=== PATIENT | female | born 1945 | race Caucasian/White ===

== ENCOUNTER 2017-01-27 16:05 | Observation (INO) | payer MEDICARE, OTHER ==
[2017-01-27] VITALS (7 sets, daily range): BP systolic 118–181; BP diastolic 71–104; PULSE 78–88; RESP 16–20; TEMP 97.6–97.8; O2SAT 87–98
[~2017-01-27] VITALS: Ht 167.6 cm; Wt 102.7 kg
[2017-01-27] MEDS ORDERED: METO25TA3 PO (16:30)
[2017-01-27] MEDS ORDERED: PRAV10TA PO (16:30)
[2017-01-27] MEDS ORDERED: AMBI5TAB PO (16:30)
[2017-01-27] MEDS ORDERED: ZOLO50TA PO (16:30)
[2017-01-27] MEDS ORDERED: PANT20 PO (16:30)
[2017-01-27] MEDS ORDERED: SODIUM CHLORIDE 0.9% FLUSH 10 ML FLUSH IV FLUSH PRN ×2 (17:15→20:15)
[2017-01-27] MEDS ORDERED: ONDANSETRON HCL 4 MG/2 ML VIAL IVP ONE (17:15)
[2017-01-27] MEDS ORDERED: MORPHINE SULFATE 4 MG/ML INJ IV PUSH ONE (17:15)
[2017-01-27 17:22] LABS: AUTOMATED NEUTROPHIL # 8.7 TH/MM3 (1.8-7.7); BASOPHIL % 0.4 % (0.0-2.0); EOSINOPHIL # 0.1 TH/MM3 (0-0.4); EOSINOPHIL % 0.6 % (0.0-4.0); HEMATOCRIT 42.7 % (35.0-46.0); HEMO FLAGS DIFF FINAL; LYMPH % 14.7 % (9.0-44.0); LYMPHOCYTE # 1.7 TH/MM3 (1.0-4.8); MONO % 7.4 % (0.0-8.0); NEUT % 76.9 % (16.0-70.0); PLATELET COUNT 320 TH/MM3 (150-450); RED BLOOD COUNT 5.21 MIL/MM3 (4.00-5.30); RED CELL DISTRIBUTION WIDTH 14.4 % (11.6-17.2); WHITE BLOOD COUNT 11.3 TH/MM3 (4.0-11.0)
--- NOTE | 2017-01-27 17:23 | PD ---
HPI Chief Complaint: Abdominal Pain Time Seen by Provider: 17:04 Travel History International Travel<30 days: No Contact w/Intl Traveler<30days: No Traveled to known affect area: No History of Present Illness HPI 71-year-old female patient with history of C. difficile diarrhea, complicated by intestinal perforation, fistula formation, and has a current colostomy, was seen in [place] last month and had been put on antibiotics, presents back to the ER today for left lower quadrant abdominal pain and back pain with nausea. She states the pain is currently an 8 out of 10. She has noticed hyperactive bowel sounds and has been putting out copious amount of greenish stool in her colostomy bag. She has also noted small amount of red blood in her stools today. She denies any fevers or any other symptoms. Modifying Factors: None Associated Signs & Symptoms: Abdominal pain, nausea, greenish stool in colostomy bag Risk Factors: Previous history of C. difficile diarrhea, recent antibiotic use PFSH Past Medical History Depression: Yes Heart Rhythm Problems: Yes Cancer: Yes (left breast) Cardiovascular Problems: Yes (hx of htn on meds) High Cholesterol: Yes Diminished Hearing: No Gastrointestinal Disorders: Yes (right colostomy bag) GERD: Yes Hypertension: Yes Respiratory: Yes (copd) Influenza Vaccination: Yes ?: Not Past Surgical History Abdominal Surgery: Yes (several , colostomy and reversal) Cardiac Surgery: Yes (ablation twice) Section: Yes Other Surgery: Yes (left lumpectomy) Social History Alcohol Use: No Tobacco Use: No Allergies-Medications (Allergen,Severity, Reaction): Coded Allergies: No Known Allergies (Unverified , 01/27/17) Reported Meds & Prescriptions Reported Meds & Active Scripts Active Reported Ambien (Zolpidem Tartrate) 5 Mg Tab 0 PO HS PRN Pravastatin 10 Mg Tab 0 PO HS NEB Protonix (Pantoprazole Sodium) 20 Mg Tab 0 PO DAILY Zoloft (Sertraline HCl) 50 Mg Tab 0 PO DAILY Metoprolol Tartrate 25 Mg Tab 0 PO DAILY Review of Systems Except as stated in HPI: all other systems reviewed are Neg Physical Exam Narrative GENERAL: Well-developed elderly white female patient currently in mild distress. Awake and oriented 3. SKIN: Focused skin assessment warm/dry. HEAD: Atraumatic. Normocephalic. EYES: Pupils equal and round. No scleral icterus. No injection or drainage. ENT: No nasal bleeding or discharge. Mucous membranes pink and moist. NECK: Trachea midline. No JVD. CARDIOVASCULAR: Regular rate and rhythm. No murmur appreciated. RESPIRATORY: No accessory muscle use. Clear to auscultation. Breath sounds equal bilaterally. GASTROINTESTINAL: Abdomen soft, periumbilical and left lower quadrant tenderness without guarding or rebound, left lower quadrant colostomy is in place with greenish stool, nondistended. Hepatic and splenic margins not palpable. MUSCULOSKELETAL: No obvious deformities. No clubbing. No cyanosis. No edema. NEUROLOGICAL: Awake and alert. No obvious cranial nerve deficits. Motor grossly within normal limits. Normal speech. PSYCHIATRIC: Appropriate mood and affect; insight and judgment normal. Data Data Last Documented VS Vital Signs Date Time Temp Pulse Resp B/P Pulse Ox O2 Delivery O2 Flow Rate FiO2 01/27/17 18:19 88 18 118/71 96 Room Air 01/27/17 16:10 97.6 Orders Complete Blood Count With Diff (01/27/17 17:04) Comprehensive Metabolic Panel (01/27/17 17:04) Lipase (01/27/17 17:04) Urinalysis - C+S If Indicated (01/27/17 17:04) Ct Abd/Pel W Iv Contrast(Rout) (01/27/17 17:04) Iv Access Insert/Monitor (01/27/17 17:04) Ecg Monitoring (01/27/17 17:04) Oximetry (01/27/17 17:04) Morphine Inj (Morphine Inj) (01/27/17 17:15) Ondansetron Inj (Zofran Inj) (01/27/17 17:15) Sodium Chloride 0.9% Flush (Ns Flush) (01/27/17 17:15) C Diff Toxin Pcr (01/27/17 17:04) Iohexol 350 Inj (Omnipaque 350 Inj) (01/27/17 18:08) Admit Order (Ed Use Only) (01/27/17 19:07) Metronidazole (Flagyl) (01/27/17 19:15) Labs Laboratory Tests Test 01/27/17 01/27/17 16:35 16:45 Urine Color YELLOW Urine Turbidity CLERA Urine pH 5.5 Urine Specific [place] 1.015 Urine Protein TRACE mg/dL Urine Glucose (UA) NEG mg/dL Urine Ketones NEG mg/dL Urine Occult Blood TRACE Urine Nitrite NEG Urine Bilirubin NEG Urine Leukocyte Esterase SMALL Urine RBC 0-3 /hpf Urine WBC 6-8 /hpf Urine Squamous Epithelial 0-5 /hpf Cells Urine Bacteria RARE /hpf Microscopic Urinalysis Comment CULT NOT INDICATED White Blood Count 11.3 TH/MM3 Red Blood Count 5.21 MIL/MM3 Hemoglobin 14.1 GM/DL Hematocrit 42.7 % Mean Corpuscular Volume 82.0 FL Mean Corpuscular Hemoglobin 27.0 PG Mean Corpuscular Hemoglobin 33.0 % Concent Red Cell Distribution Width 14.4 % Platelet Count 320 TH/MM3 Mean Platelet Volume 9.1 FL Neutrophils (%) (Auto) 76.9 % Lymphocytes (%) (Auto) 14.7 % Monocytes (%) (Auto) 7.4 % Eosinophils (%) (Auto) 0.6 % Basophils (%) (Auto) 0.4 % Neutrophils # (Auto) 8.7 TH/MM3 Lymphocytes # (Auto) 1.7 TH/MM3 Monocytes # (Auto) 0.8 TH/MM3 Eosinophils # (Auto) 0.1 TH/MM3 Basophils # (Auto) 0.0 TH/MM3 CBC Comment DIFF FINAL Differential Comment Sodium Level 140 MEQ/L Potassium Level 4.6 MEQ/L Chloride Level 104 MEQ/L Carbon Dioxide Level 25.9 MEQ/L Anion Gap 10 MEQ/L Blood Urea Nitrogen 17 MG/DL Creatinine 1.10 MG/DL Estimat Glomerular Filtration 49 ML/MIN Rate Random Glucose 110 MG/DL Calcium Level 9.9 MG/DL Total Bilirubin 0.7 MG/DL Aspartate Amino Transf 26 U/L (AST/SGOT) Alanine Aminotransferase 23 U/L (ALT/SGPT) Alkaline Phosphatase 105 U/L Total Protein 8.5 GM/DL Albumin 3.5 GM/DL Lipase 312 U/L [facility] Medical Decision Making Medical Screen Exam Complete: Yes Emergency Medical Condition: Yes Medical Record Reviewed: Yes Interpretation(s) Laboratory Tests Test 01/27/17 01/27/17 16:35 16:45 Urine Occult Blood TRACE (NEG) Urine Leukocyte Esterase SMALL (NEG) Urine WBC 6-8 /hpf (0-5) Urine Bacteria RARE /hpf (NONE) White Blood Count 11.3 TH/MM3 (4.0-11.0) Neutrophils (%) (Auto) 76.9 % (16.0-70.0) Neutrophils # (Auto) 8.7 TH/MM3 (1.8-7.7) Creatinine 1.10 MG/DL (0.50-1.00) Estimat Glomerular Filtration 49 ML/MIN (>89) Rate Random Glucose 110 MG/DL (74-106) Total Protein 8.5 GM/DL (6.4-8.2) Last 24 hours Impressions Abdomen/Pelvis CT 01/27/17 1704 Signed Impressions: Service Date/Time: Friday, January 27, 2017 17:51 - CONCLUSION: Evidence of small bowel obstruction with adhesed, distended small bowel loops in and around the large left lower quadrant peristomal hernia. Trey Wang MD Differential Diagnosis Left lower quadrant abdominal pain with nausea, greenish stoolsC. difficile diarrhea versus colitis versus acute intra-abdominal processes Narrative Course Lab work did not show significant leukocytosis or signs of dehydration or legs light abnormalities. She is tender over the left lower quadrant and CAT scan is showing hernia in that area with small bowel obstruction. At this point, case was discussed with Dr. Frazier who states that he does not feel that patient needs emergent surgical treatment especially with no significant vomiting or signs that the hernia is incarcerated on exam. He states that the patient can be evaluated medically and treated medically at this point. C. difficile toxin is pending. Considering patient's previous history of C. difficile diarrhea, my plan would be to give her Flagyl as precaution. Case is discussed with Dr. Chilel for admission. He has requested that I consult General surgery on the patient. Diagnosis Primary Impression: Small bowel obstruction Admitting Information Admitting Physician Requests: Admit Violetta Duran MD Jan 27, 2017 17:23
[2017-01-27 17:24] LABS: BLOOD, URINE TRACE (NEG); GLUCOSE,URINE NEG (NEG); KETONE, URINE NEG (NEG); NITRITE,URINE NEG (NEG); PH, URINE 5.5 (5.0-8.5)
[2017-01-27 17:29] LABS: URINE COLOR YELLOW (YELLW/STRAW)
[2017-01-27 17:30] LABS: RBC, URINE 0-3 /hpf (0-3); SQUAMOUS EPITHELIAL CELL URINE 0-5 /hpf (0-5)
[2017-01-27 17:30] LABS: CHLORIDE 104 MEQ/L (98-107); POTASSIUM 4.6 MEQ/L (3.5-5.1); SODIUM (NA) 140 MEQ/L (136-145)
[2017-01-27 17:31] LABS: BACTERIA, URINE RARE /hpf; COMMENT (UR) CULT NOT INDICATED; CULTURE IF INDICATED CULT NOT INDICATED
[2017-01-27 17:35] LABS: ANION GAP 10 MEQ/L (5-15); BICARBONATE 25.9 MEQ/L (21.0-32.0)
[2017-01-27 17:36] LABS: BLOOD UREA NITROGEN 17 MG/DL (7-18)
[2017-01-27 17:38] LABS: ALT (GPT) 23 U/L (10-53); AST (GOT) 26 U/L (15-37); GLOMERULAR FILTRATION RATE 49 ML/MIN (>89)
[2017-01-27 17:40] LABS: TOTAL BILIRUBIN ADULT 0.7 MG/DL (0.2-1.0)
[2017-01-27 17:41] LABS: ALKALINE PHOSPHATASE 105 U/L (45-117)
[2017-01-27] MEDS ORDERED: IOHEXOL 350 MG/ML 10 ML VIAL (for RAD DIAG) IV ONE (18:08)
--- NOTE | 2017-01-27 18:20 | RADHPO ---
EXAM DATE/TIME: 01/27/2017 17:51 [facility] COMPARISON: No previous studies available for comparison. INDICATIONS : Left lower quadrant pain radiaitng to back. IV CONTRAST: 70 cc Omnipaque 350 (iohexol) IV ORAL CONTRAST: No oral contrast ingested. RADIATION DOSE: 24.10 CTDIvol (mGy) MEDICAL HISTORY : Hypertension. Carcinoma, breast. Gastroesophageal reflux disease. SURGICAL HISTORY : Colostomy. section. ENCOUNTER: Initial ACUITY: 4 - 6 days PAIN SCALE: 4/10 LOCATION: Left lower quadrant TECHNIQUE: Volumetric scanning of the abdomen and pelvis was performed. Using automated exposure control and ad justment of the mA and/or kV according to patient size, radiation dose was kept as low as reasonably achievable to obtain optimal diagnostic quality images. FINDINGS: Previous colectomy. There is a left lower quadrant ostomy. There is a large peristomal hernia. Norbert us loops of distended and tethered appearing small bowel are seen within the hernia and the adjacent abdominal cavity. The hernia defect measures 11.5 cm across. There are loops of bowel distal to the h ernia that appeared decompressed and the segment of bowel just upstream of the ostomy is not distende d. The features are compatible with obstruction but appears to be related to adhesions rather than th e hernia itself. Liver, spleen, pancreas and adrenal glands are within normal limits. Both kidneys are small. No evide nce of obstructive uropathy. There's atherosclerotic calcification of the abdominal aorta. No acute bony abnormality demonstrated. There are old, healed lower left rib fractures. CONCLUSION: Evidence of small bowel obstruction with adhesed, distended small bowel loops in and around the large left lower quadrant peristomal hernia. Trey Wang MD on January 27, 2017 at 18:12 Board Certified Radiologist. This report was verified electronically.
[2017-01-27] MEDS ORDERED: metroNIDAZOLE 500 MG TAB PO ONE (19:15)
[2017-01-27] MEDS ORDERED: ACETAMINOPHEN 325 MG TAB PO PRN (20:15)
[2017-01-27] MEDS ORDERED: NALOXONE HCL 0.4 MG/ML AMP IV PRN (20:15)
[2017-01-27] MEDS ORDERED: HYDROmorphone HCL PF 1 MG/ML VIAL IV PRN ×2 (20:15)
[2017-01-27] MEDS ORDERED: PANTOPRAZOLE SODIUM 40 MG VIAL IV PUSH SCH (21:00)
[2017-01-27] MEDS: metroNIDAZOLE 500 MG TAB PO SCH (22:00)
[2017-01-27] MEDS: SODIUM CHLOR 0.9% 1000 ML INJ 1,000 ML IV SCH (22:01)
[2017-01-27] MEDS: SODIUM CHLORIDE 0.9% FLUSH 10 ML FLUSH IV FLUSH SCH (22:01)
[2017-01-27 22:42] LABS: C. DIFF EPI 027 PRESUMPTIVE NEGATIVE (NEGATIVE); C. DIFF TOXIN PCR NEGATIVE (NEGATIVE)
[2017-01-27] MEDS: ONDANSETRON HCL 4 MG/2 ML VIAL IVP PRN (22:42)
[2017-01-27] MEDS: HYDROmorphone HCL PF 1 MG/ML VIAL IV PRN (22:43)
[2017-01-28] VITALS: BP 107/66; PULSE 89; RESP 20; TEMP 97.4; O2SAT 97
[2017-01-28] MEDS: metroNIDAZOLE 500 MG TAB PO SCH (05:14)
[2017-01-28] MEDS: SODIUM CHLOR 0.9% 1000 ML INJ 1,000 ML IV SCH ×2 (05:15→17:10)
[2017-01-28] MEDS: ONDANSETRON HCL 4 MG/2 ML VIAL IVP PRN ×2 (05:18→11:50)
[2017-01-28] MEDS: HYDROmorphone HCL PF 1 MG/ML VIAL IV PRN ×2 (05:20→11:51)
[2017-01-28 06:57] LABS: BASOPHIL % 0.3 % (0.0-2.0); EOSINOPHIL % 0.4 % (0.0-4.0); HEMATOCRIT 36.9 % (35.0-46.0); HEMO FLAGS DIFF FINAL; LYMPH % 15.7 % (9.0-44.0); LYMPHOCYTE # 1.1 TH/MM3 (1.0-4.8); MEAN CELL VOLUME 82.2 FL (80.0-100.0); MEAN CORPUSCULAR HEMOGLOBIN 27.3 PG (27.0-34.0); MEAN CORPUSCULAR HGB CONC 33.3 % (32.0-36.0); MONO % 11.6 % (0.0-8.0); PLATELET COUNT 253 TH/MM3 (150-450); RED BLOOD COUNT 4.49 MIL/MM3 (4.00-5.30); RED CELL DISTRIBUTION WIDTH 14.3 % (11.6-17.2); WHITE BLOOD COUNT 6.9 TH/MM3 (4.0-11.0)
[2017-01-28 07:14] LABS: BICARBONATE 27.3 MEQ/L (21.0-32.0)
[2017-01-28 08:00] VITALS: BP 119/77; PULSE 96; RESP 18; TEMP 97.6; O2SAT 92
--- NOTE | 2017-01-28 09:10 | HHI.HP ---
[facility] Non-Staff Admission Diagnosis small bowel obstruction Diagnoses: (1) Small bowel obstruction Diagnosis: Principal (2) History of colostomy Diagnosis: Principal (3) JASMYN (acute kidney injury) Diagnosis: Principal Chief Complaint: abdominal pain, nausea, vomiting Travel History International Travel<30 Days: No Contact w/Intl Traveler <30 Da: No Traveled to Known Affected Are: No History of Present Illness 71-year-old female with history of small bowel obstruction and C. difficile one month ago with pre-existing left-sided colostomy s/p bowel perforation and fistula formation a few years ago presents with complaint of increased abdominal pain and nausea, and vomiting. Patient states she had abdominal pain which started on Friday night but she took Tylenol which relieved it. She states yesterday morning symptoms started again and she had some mild vomiting. She admits to feeling nauseous. Denies any further emesis. She denies any increased stool output into her colostomy bag but states it is green. Patient states she has increased gas into her colostomy bag. She denies any abdominal distention. She's admits to feeling hot but denies any chills. Patient states one month ago in [place] she was told she had a "small blockage" and was diagnosed with C. difficile and put on medication. Patient states she hadn't had any problems in 1.5 years until last month. Patient states she has been up and walking around. Patient does not wish to continue Flagyl. Review of Systems Except as stated in HPI: all other systems reviewed are Neg Past Family Social History Past Medical History ~1 month ago C.diff and bowel obstruction 2013 C. difficile infection following cardiac ablation. Depression Left breast cancer, radiation Hyperlipidemia Hypertension COPD Past Surgical History 2013 Patient had bowel perforation and required right sided colostomy following C.diff infection. She then underwent attempted reversal but developed a fistula and now has colostomy on the left with left sided hernia. Cardiac ablation Left lumpectomy Reported Medications Ambien (Zolpidem Tartrate) 5 Mg Tab 0 PO HS PRN Pravastatin 10 Mg Tab 0 PO HS NEB Protonix (Pantoprazole Sodium) 20 Mg Tab 0 PO DAILY Zoloft (Sertraline HCl) 50 Mg Tab 0 PO DAILY Metoprolol Tartrate 25 Mg Tab 0 PO DAILY Allergies: Coded Allergies: No Known Allergies (Unverified , 01/27/17) Family History Mother: Breast cancer at old age. Father: Prostate cancer Social History Patient quit smoking cigarettes 9 years ago. Prior to this she smoked 2.5 packs per day. Started smoking at age of 17. Patient quit using alcohol 2 years ago and prior to this was a heavy drinker. She denies any history of illicit drug use. Physical Exam Vital Signs Vital Signs Date Time Temp Pulse Resp B/P Pulse Ox O2 Delivery O2 Flow Rate FiO2 01/28/17 08:00 97.6 96 18 119/77 92 01/28/17 00:00 97.4 89 20 107/66 97 01/27/17 22:48 98 Nasal Cannula 2.00 01/27/17 22:45 87 21 01/27/17 20:30 97.8 78 20 128/86 94 01/27/17 20:26 84 20 142/80 97 01/27/17 20:07 20 01/27/17 18:19 88 18 118/71 96 Room Air 01/27/17 17:32 18 01/27/17 17:20 85 18 134/81 96 Room Air 01/27/17 16:10 97.6 88 16 181/104 95 Physical Exam GENERAL: This is a well-nourished, well-developed patient, in no apparent distress. SKIN: No rashes, ecchymoses or lesions. Warm and dry. Surgical scar over the abdomen. HEAD: Atraumatic. Normocephalic. EYES: No scleral icterus. No injection or drainage. ENT: Dry mucous membranes. NECK: Trachea midline. CARDIOVASCULAR: Distant heart sounds. RESPIRATORY: Clear to auscultation. Breath sounds equal bilaterally. No wheezes , rales, or rhonchi. GASTROINTESTINAL: Normal bowel sounds. Abdomen distended but soft. Mildly tender on the left in area of hernia. Colostomy bag on the left with greenish- brown soft output. MUSCULOSKELETAL: No lower extremity edema bilaterally. NEUROLOGICAL: Awake and alert. Motor grossly within normal limits. Normal speech. Laboratory Laboratory Tests Test 01/27/17 01/27/17 01/27/17 01/28/17 16:35 16:45 17:10 05:45 Urine Color YELLOW Urine Turbidity CLERA Urine pH 5.5 Urine Specific [place] 1.015 Urine Protein TRACE Urine Glucose (UA) NEG Urine Ketones NEG Urine Occult Blood TRACE Urine Nitrite NEG Urine Bilirubin NEG Urine Leukocyte Esterase SMALL Urine RBC 0-3 Urine WBC 6-8 Urine Squamous Epithelial 0-5 Cells Urine Bacteria RARE Microscopic Urinalysis Comment CULT NOT INDICATED White Blood Count 11.3 6.9 Red Blood Count 5.21 4.49 Hemoglobin 14.1 12.3 Hematocrit 42.7 36.9 Mean Corpuscular Volume 82.0 82.2 Mean Corpuscular Hemoglobin 27.0 27.3 Mean Corpuscular Hemoglobin 33.0 33.3 Concent Red Cell Distribution Width 14.4 14.3 Platelet Count 320 253 Mean Platelet Volume 9.1 8.6 Neutrophils (%) (Auto) 76.9 72.0 Lymphocytes (%) (Auto) 14.7 15.7 Monocytes (%) (Auto) 7.4 11.6 Eosinophils (%) (Auto) 0.6 0.4 Basophils (%) (Auto) 0.4 0.3 Neutrophils # (Auto) 8.7 5.0 Lymphocytes # (Auto) 1.7 1.1 Monocytes # (Auto) 0.8 0.8 Eosinophils # (Auto) 0.1 0.0 Basophils # (Auto) 0.0 0.0 CBC Comment DIFF FINAL DIFF FINAL Differential Comment Sodium Level 140 144 Potassium Level 4.6 4.0 Chloride Level 104 105 Carbon Dioxide Level 25.9 27.3 Anion Gap 10 12 Blood Urea Nitrogen 17 16 Creatinine 1.10 1.10 Estimat Glomerular Filtration 49 49 Rate Random Glucose 110 126 Calcium Level 9.9 8.8 Total Bilirubin 0.7 Aspartate Amino Transf 26 (AST/SGOT) Alanine Aminotransferase 23 (ALT/SGPT) Alkaline Phosphatase 105 Total Protein 8.5 Albumin 3.5 Lipase 312 Stool C. difficile Toxin (PCR) NEGATIVE Stl C. difficile Toxin PRESUMPTIVE Epiderm 027 NEGATIVE Result Diagram: 01/28/17 0545 01/28/17 0545 Imaging Last Impressions Abdomen/Pelvis CT 01/27/17 5757 Signed Impressions: Service Date/Time: Friday, January 27, 2017 17:51 - CONCLUSION: Evidence of small bowel obstruction with adhesed, distended small bowel loops in and around the large left lower quadrant peristomal hernia. Trey Wang MD Assessment and Plan Assessment and Plan 71-year-old female presents with abdominal pain, nausea, and vomiting and found to have: Small bowel obstruction: Patient with current left-sided colostomy. Per patient she had a bowel obstruction one month ago in [place] and also had C. difficile at that time. CT imaging reveals small bowel obstruction and adhesions around the left-sided hernia, but patient appears stable. Patient denies increased colostomy output. C. difficile testing is negative. Mild leukocytosis improved. Patient afebrile. -General surgery evaluated the patient this morning. No surgical intervention indicated. Repeat KUB ordered for today as well as tomorrow morning. -Continue IV fluids. Remain nothing by mouth at this time. -Continue Zofran prn nausea -Dilaudid prn pain -Continue Lactinex -Patient refuses Flagyl JASMYN: Creatinine 1.10, stable this morning. GFR 49. Could have chronic kidney disease, but no prior labs for comparison. -Continue IVF. -Monitor BMP. DVT prevention: SCDs. Written by Megan Vieira PA-C acting as scribe for Dr. Chilel on 01/28/17 at 0900. This note was transcribed by scribe []. I, Dr. Grant Chilel personally performed the history, physical exam, and medical decision making; and confirmed the accuracy of the information in the transcribed note. Authenticated by Dr. Grant Chilel on 01/28/17 at 21:30. Megan Vieira Jan 28, 2017 09:10 Grant Chilel MD Jan 28, 2017 21:30
[2017-01-28] MEDS: SODIUM CHLORIDE 0.9% FLUSH 10 ML FLUSH IV FLUSH SCH ×2 (10:13→21:00)
[2017-01-28] MEDS: LACTOBACILLUS ACIDOPHILUS TAB PO SCH ×3 (10:13→17:49)
--- NOTE | 2017-01-28 10:29 | RADHPO ---
EXAM DATE/TIME: 01/28/2017 09:31 [facility] COMPARISON: CT ABDOMEN & PELVIS W CONTRAST, January 27, 2017, 17:51. INDICATIONS : Small Bowel Obstruction MEDICAL HISTORY : Hypertension. Carcinoma, breast. Gastroesophageal reflux disease. SURGICAL HISTORY : Colostomy. ENCOUNTER: Subsequent ACUITY: 4 - 6 days PAIN SCORE: 4/10 LOCATION: Bilateral lower quadrant FINDINGS: There are multiple loops of mildly dilated small intestine within the left lower quadrant consistent with possible small bowel obstruction. Clinical correlation is recommended. Degenerative changes an d scoliosis of the thoracolumbar spine are noted. There is no free intraperitoneal air. CONCLUSION: 1. Several loops of mildly dilated small intestine within the left lower quadrant suggestive of poss ible small obstruction. Clinical correlation is recommended. 2. Degenerative changes and scoliosis of the thoracolumbar spine. Lamin Dunn MD on January 28, 2017 at 10:22 Board Certified Radiologist. This report was verified electronically.
[2017-01-28 12:00] VITALS: BP 150/93; PULSE 98; RESP 18; TEMP 97; O2SAT 93
[2017-01-28] MEDS ORDERED: PANT40TA3 PO (15:10)
[2017-01-28 16:00] VITALS: BP 133/78; PULSE 96; RESP 18; TEMP 98; O2SAT 93
[2017-01-28] MEDS ORDERED: PRAV10TA PO (16:07)
[2017-01-28] MEDS ORDERED: AMBI5TAB PO (16:07)
[2017-01-28] MEDS: PANTOPRAZOLE SOD 40 MG DELAYED RELEASE TAB PO SCH (17:49)
--- NOTE | 2017-01-28 18:15 | MB ---
cc: SANTI SANCHEZ M.D. DATE OF CONSULTATION 01/28/2017 REASON FOR CONSULTATION Possible bowel obstruction. HISTORY OF PRESENT ILLNESS Ms. Corbin is a very pleasant 71-year-old female who is vacationing in the area and developed some nausea and abdominal pain. She has a very complex surgical history including multiple exploratory laparotomies, multiple ostomies and fistulas and all of this was apparently for C diff colitis and diverticulitis. She states she had a similar episode about a month ago when she was vacationing in [place]. She states she was admitted for 3 days in [place] with an NG tube and this episode spontaneously resolve. The episode that brought her here today started about three days ago according to her. She had some nausea and some mild cramping abdominal pain mainly in the left lower quadrant. She did report two episodes of a small amount of emesis. She states the nausea and the cramping was what bother her the most. She reports she did not get distended like she did when she was in [place]. She reports her ostomy is still working, in fact she reports that the output had increased with this episode. She reports a similar episode a month ago in [place]. She reports no fever or chills. She reports gas and stool within the ostomy throughout this episode. Again she denies any abdominal distension. PAST MEDICAL HISTORY Includes: 1. Clostridium difficile colitis. 2. Cardiac arrhythmia requiring ablation. 3. Previous DCIS left breast. 4. Hypertension. 5. Chronic obstructive pulmonary disease. PAST SURGICAL HISTORY Includes: 1. Exploratory laparotomy and colostomy in 2013 for C diff colitis. And then she subsequently had a colostomy takedown which apparently leaked. She has also abdominal fistulas and was taken back to the operating room for a second colostomy. She is currently with the second colostomy. She states she was in and out of rehab during that time. She had line sepsis from a PICC line and was extremely sick during this period. 2. She has also had a left breast lumpectomy. 3. And two C-sections. MEDICATIONS Her medications include: 1. Ambien. 2. Pravastatin. 3. Protonix. 4. Zoloft. 5. Metoprolol. ALLERGIES NO KNOWN DRUG ALLERGIES. SOCIAL HISTORY She does not currently smoke but previously smoked 2-1/2 packs a day but quit about 10 years ago. She does not drink any alcohol but she states previously she did drink a fair amount. She currently does not live in any one particular place. She states she bounces around between [place] and [place] from [place] all the way down to [place]. She is currently renting a condo in [place]. FAMILY HISTORY Noncontributory. PHYSICAL EXAMINATION VITAL SIGNS: Temperature is 98, pulse is 90, blood pressure 120/70, respiratory 20. GENERAL: This is an obese female watching TV in no significant distress. HEENT: Pupils equal, round and reactive to light. Sclerae white. Oropharynx clear and moist. NECK: Supple. No masses. LUNGS: Clear to auscultation bilaterally. HEART: S1-S2. No murmur. ABDOMEN: Soft. Obese. Tender in the left lower quadrant. She has a reducible large peristomal hernia. There is air and gas within the ostomy. Lower midline incision. No evidence of a midline hernia. Bowel sounds are active. EXTREMITIES: Free range of motion x4. NEUROLOGIC: Alert and oriented times three. LABORATORY DATA White blood cell count last night was 11, this morning it is 6.9. She has 72% neutrophils. Electrolytes are basically within normal limits. Urinalysis is essentially negative. C. difficile is negative. IMAGING CT scan of the abdomen and pelvis shows some diffuse dilatation of the small bowel and a large peristomal hernia on the left. There is air and gas within the colon. I do not see an obvious transition point between the distended small bowel and the smaller small bowel, therefore, I would not declare this an obvious small bowel obstruction. IMPRESSION 1. Ileus versus gastroenteritis versus mild partial small bowel obstruction. 2. Large peristomal hernia, reducible. 3. History of C diff colitis. PLAN At this point the patient clinically seems to be doing fairly well. Clinically she does not have an obvious bowel obstruction as the patient did not present abdominal distension or vomiting or lack of ostomy output. In fact the patient reports ostomy output has increased in the last 4 days. Overall I believe she can be managed medically. I do not see an indication for surgical intervention at this time. If the patient develops abdominal distension and the inability to tolerate p.o. or lack of stool or gas in the ostomy in the left lower quadrant, would reconsider surgical options. At this point I have advised the patient when she returns to [place] she needs to follow up with her surgeon up there and advise him that she has had two episodes of partial obstruction as well as a symptomatic parastomal hernia and this should therefore be addressed surgically to prevent a third episode. We will follow up on the patient and see how she does clinically. I recommend a limited p.o. in intake today and placing abdominal binder to help keep hernia reduced. This was discussed with the patient as well as Dr. Chilel and the nursing staff. MD LETICIA Hackett/KK /2:32 PM /5:39 PM
[2017-01-28 20:00] VITALS: BP 142/93; PULSE 111; RESP 20; TEMP 97.5; O2SAT 95
[2017-01-28 20:50] VITALS: O2SAT 96
[2017-01-28] MEDS: METOPROLOL TARTRATE 25 MG TAB PO SCH (21:08)
[2017-01-28] MEDS: PRAVASTATIN SOD 10 MG TAB PO SCH (21:08)
[2017-01-28] MEDS: ZOLPIDEM TARTRATE 5 MG TAB PO PRN (21:18)
[2017-01-29] VITALS (8 sets, daily range): BP systolic 113–144; BP diastolic 64–80; PULSE 63–84; RESP 16–21; TEMP 96.6–97.9; O2SAT 95–98
[2017-01-29] MEDS: SODIUM CHLOR 0.9% 1000 ML INJ 1,000 ML IV SCH ×2 (01:20→12:22)
--- NOTE | 2017-01-29 08:25 | RADHPO ---
EXAM DATE/TIME: 01/29/2017 06:47 [facility] COMPARISON: CT ABDOMEN & PELVIS W CONTRAST, January 27, 2017, 17:51. ABDOMEN KUB ONLY, January 28, 2017, 9:31. INDICATIONS : Small bowel obstruction. MEDICAL HISTORY : Hypertension. Carcinoma, breast. Gastroesophageal reflux disease. SURGICAL HISTORY : Colostomy. section. ENCOUNTER: Subsequent ACUITY: 1 week PAIN SCORE: 0/10 LOCATION: abdomen FINDINGS: There has been an interval decrease in the air filled dilatation of loops of small bowel within the l eft lower quadrant suggesting possible resolving small bowel obstruction. Clinical correlation is re commended. No free intraperitoneal air is noted. Degenerative changes and scoliosis of the thoraco lumbar spine are stable. CONCLUSION: 1. Interval decrease in the air filled dilatation of several loops of small bowel within the left lo wer quadrant suggesting possible resolving small bowel obstruction. Clinical correlation is recommen ded. 2. Degenerative changes and scoliosis of the thoracolumbar spine. Lamin Dunn MD on January 29, 2017 at 7:23 Board Certified Radiologist. This report was verified electronically.
[2017-01-29] MEDS: LACTOBACILLUS ACIDOPHILUS TAB PO SCH ×3 (08:35→17:07)
[2017-01-29] MEDS: METOPROLOL TARTRATE 25 MG TAB PO SCH ×2 (08:35→20:40)
[2017-01-29] MEDS: PANTOPRAZOLE SOD 40 MG DELAYED RELEASE TAB PO SCH (08:35)
[2017-01-29] MEDS: SERTRALINE HCL 50 MG TAB PO SCH (08:35)
[2017-01-29] MEDS: SODIUM CHLORIDE 0.9% FLUSH 10 ML FLUSH IV FLUSH SCH ×2 (08:36→20:46)
--- NOTE | 2017-01-29 09:26 | HHI.PR ---
Subjective Remarks Follow-up SBO. She feels better with less abdominal pain and increased colostomy output. Tolerating liquid diet today did not eat all day yesterday. Objective Vitals Vital Signs Date Time Temp Pulse Resp B/P Pulse Ox O2 Delivery O2 Flow Rate FiO2 01/29/17 04:00 97.9 84 18 119/68 97 01/29/17 00:00 97.7 79 18 119/64 97 01/28/17 20:50 96 Nasal Cannula 2.00 01/28/17 20:00 97.5 111 20 142/93 95 01/28/17 16:00 98.0 96 18 133/78 93 01/28/17 12:00 97.0 98 18 150/93 93 01/28/17 10:00 Nasal Cannula 2.00 I/O 01/28/17 01/28/17 01/28/17 01/29/17 01/29/17 01/29/17 07:00 15:00 23:00 07:00 15:00 23:00 Intake Total 850 ml 0 ml 1078 ml 980 ml Output Total 100 ml 500 ml 275 ml 450 ml Balance 750 ml -500 ml 803 ml 530 ml Intake Oral 0 ml IV Total 850 ml 1078 ml 980 ml Output Urine Total 100 ml 400 ml 200 ml 150 ml Stool Total 75 ml 300 ml Emesis 100 ml # Voids 3 1 1 Result Diagram: 01/28/17 0545 01/28/17 0545 Imaging Last Impressions Abdomen X-Ray 01/28/17 0000 Signed Impressions: Service Date/Time: Saturday, January 28, 2017 09:31 - CONCLUSION: 1. Several loops of mildly dilated small intestine within the left lower quadrant suggestive of possible small obstruction. Clinical correlation is recommended. 2. Degenerative changes and scoliosis of the thoracolumbar spine. Lamin Dunn MD Abdomen/Pelvis CT 01/27/17 1704 Signed Impressions: Service Date/Time: Friday, January 27, 2017 17:51 - CONCLUSION: Evidence of small bowel obstruction with adhesed, distended small bowel loops in and around the large left lower quadrant peristomal hernia. Trey Wang MD Objective Remarks GENERAL: This is a well-nourished, well-developed patient, in no apparent distress. SKIN: No rashes, ecchymoses or lesions. Warm and dry. Surgical scar over the abdomen. HEAD: Atraumatic. Normocephalic. EYES: No scleral icterus. No injection or drainage. ENT: Dry mucous membranes. NECK: Trachea midline. CARDIOVASCULAR: Distant heart sounds. RESPIRATORY: Clear to auscultation. Breath sounds equal bilaterally. No wheezes , rales, or rhonchi. GASTROINTESTINAL: Normal bowel sounds. Abdomen distended but soft. Mildly tender on the left in area of hernia. Colostomy bag on the left with greenish- brown soft output. MUSCULOSKELETAL: No lower extremity edema bilaterally. NEUROLOGICAL: Awake and alert. Motor grossly within normal limits. Normal speech. Procedures none A/P Problem List: (1) Small bowel obstruction ICD Code: K56.69 Status: Acute (2) History of colostomy ICD Code: Z98.890 Status: Acute (3) JASMYN (acute kidney injury) ICD Code: N17.9 Status: Acute Assessment and Plan 71-year-old female presents with abdominal pain, nausea, and vomiting and found to have: Small bowel obstruction: Patient with current left-sided colostomy. Per patient she had a bowel obstruction one month ago in [place] and also had C. difficile at that time. CT imaging reveals small bowel obstruction and adhesions around the left-sided hernia, but patient appears stable. Patient denies increased colostomy output. C. difficile testing is negative. Mild leukocytosis improved. Patient afebrile. -General surgery evaluated the patient this morning. No surgical intervention indicated. Repeat KUB showed resolving SBO. We'll advance diet and monitor response -Discontinue IV fluids if tolerating diet. -Continue Zofran prn nausea -Dilaudid prn pain -Continue Lactinex -Patient refuses Flagyl JASMYN: Creatinine 1.10, stable this morning. GFR 49. Could have chronic kidney disease, but no prior labs for comparison. -Continue IVF. -Monitor BMP. DVT prevention: SCDs. Discharge Planning Possible discharge in the morning Grant Chilel MD Jan 29, 2017 09:26
--- NOTE | 2017-01-29 13:45 | HHI.DCPOC ---
Discharge Care Plan Diagnosis: (1) Small bowel obstruction (2) JASMYN (acute kidney injury) Your Health Problems Are: Difficulty with ADL Exercise Tolerance Goals to Promote Your Health * To prevent worsening of your condition and complications * To maintain your health at the optimal level Directions to Meet Your Goals Take your medications as prescribed Follow your dietary instruction Follow activity as directed Keep your appointments as scheduled Take your immunizations and boosters as scheduled If your symptoms worsen call your PCP, if no PCP go to Urgent Care Center or Emergency Room Smoking is Dangerous to Your Health. Avoid second hand smoke Call the 24-hour hour crisis hotline for domestic abuse at Grant Chilel MD Jan 29, 2017 13:44
[2017-01-29] MEDS: ZOLPIDEM TARTRATE 5 MG TAB PO PRN (20:40)
[2017-01-29] MEDS: PRAVASTATIN SOD 10 MG TAB PO SCH (20:40)
[2017-01-30] VITALS: BP 135/81; PULSE 78; RESP 20; TEMP 97.1; O2SAT 97
[2017-01-30 07:45] VITALS: O2SAT 94
[2017-01-30 08:00] VITALS: BP 131/81; PULSE 82; RESP 20; TEMP 97.4; O2SAT 94
[2017-01-30] MEDS: METOPROLOL TARTRATE 25 MG TAB PO SCH (08:44)
[2017-01-30] MEDS: SERTRALINE HCL 50 MG TAB PO SCH (08:44)
[2017-01-30] MEDS: LACTOBACILLUS ACIDOPHILUS TAB PO SCH ×3 (08:44→17:10)
[2017-01-30] MEDS: SODIUM CHLORIDE 0.9% FLUSH 10 ML FLUSH IV FLUSH SCH (08:44)
[2017-01-30] MEDS: PANTOPRAZOLE SOD 40 MG DELAYED RELEASE TAB PO SCH (08:44)
--- NOTE | 2017-01-30 10:16 | RADHPO ---
EXAM DATE/TIME: 01/30/2017 09:52 [facility] COMPARISON: CT ABDOMEN & PELVIS W CONTRAST, January 27, 2017, 17:51. ABDOMEN KUB ONLY, January 29, 2017, 6:47. INDICATIONS : Left lower quadrant abdomen pain since yesterday. MEDICAL HISTORY : Hypertension. Carcinoma, breast. Gastroesophageal reflux disease. SURGICAL HISTORY : Colostomy. section. ENCOUNTER: Subsequent ACUITY: 2 days PAIN SCORE: 0/10 LOCATION: Left lower quadrant Abdomen FINDINGS: The bowel gas is nonspecific. There are no signs of obstruction or free air for technique. No defini te calcified stones are identified for technique. Chronic atherosclerotic calcifications are seen inv olving the visualized arteries in the left upper quadrant not changed. CONCLUSION: Nonspecific abdomen. Scott Carlton MD on January 30, 2017 at 10:12 Board Certified Radiologist. This report was verified electronically.
--- NOTE | 2017-01-30 10:18 | RADHPO ---
EXAM DATE/TIME: 01/30/2017 09:46 [facility] COMPARISON: No previous studies available for comparison. INDICATIONS : Shortness of breath. MEDICAL HISTORY : Hypertension. Congestive heart failure. Chronic obstructive pulmonary disease. Afib. Emphysema. Left side breast cancer. SURGICAL HISTORY : Ablation. Left side lumpectomy. ENCOUNTER: Initial ACUITY: 1 day PAIN SCORE: 0/10 LOCATION: Bilateral chest FINDINGS: A small left pleural effusion is noted. Bibasilar streakiness is noted consistent with atelectasis a nd/or mild infiltrates. The heart is normal. Degenerative changes and mild scoliosis of the thoraci c spine are noted. CONCLUSION: 1. Small left pleural effusion. 2. Bibasilar streakiness consistent with atelectasis and/or mild infiltrates. Clinical correlation i s recommended. 3. Degenerative changes and scoliosis of the thoracic spine. Lamin Dunn MD on January 30, 2017 at 10:12 Board Certified Radiologist. This report was verified electronically.
--- NOTE | 2017-01-30 11:32 | HHI.PR ---
Subjective Remarks Follow-up SBO. Started soft diet last night and this morning complaining of slight left upper quadrant pain. Also noted decreased output and gas in the colostomy bag. She was also mildly hypoxic with exertion. Denies chest pain and shortness of breath. She passed walk test. Chest x-ray shows atelectasis versus infiltrate. No fever, chills and cough. Discussed with RN in case management Objective Vitals Vital Signs Date Time Temp Pulse Resp B/P Pulse Ox O2 Delivery O2 Flow Rate FiO2 01/30/17 08:00 97.4 82 20 131/81 94 01/30/17 00:00 97.1 78 20 135/81 97 01/29/17 20:00 97.2 72 21 144/64 98 01/29/17 19:26 95 21 01/29/17 16:00 97.6 70 18 129/79 96 01/29/17 12:00 96.7 63 17 113/65 96 I/O 01/29/17 01/29/17 01/29/17 01/30/17 01/30/17 01/30/17 06:59 14:59 22:59 06:59 14:59 22:59 Intake Total 980 ml 300 ml 1085 ml 240 ml Output Total 450 ml 850 ml 450 ml Balance 530 ml 300 ml 235 ml -210 ml Intake Oral 960 ml 240 ml IV Total 980 ml 300 ml 0 ml 0 ml Other 125 ml Output Urine Total 150 ml 600 ml 350 ml Stool Total 300 ml 250 ml 100 ml # Voids 1 2 Result Diagram: 01/28/17 0545 01/28/17 0545 Imaging Last Impressions Chest X-Ray 01/30/17 0000 Signed Impressions: Service Date/Time: January 09:46 - CONCLUSION: 1. Small left pleural effusion. 2. Bibasilar streakiness consistent with atelectasis and/or mild infiltrates. Clinical correlation is recommended. 3. Degenerative changes and scoliosis of the thoracic spine. Lamin Dunn MD Abdomen X-Ray 01/30/17 0000 Signed Impressions: Service Date/Time: January 09:52 - CONCLUSION: Nonspecific abdomen. K. Chay Carlton MD Abdomen/Pelvis CT 01/27/17 1704 Signed Impressions: Service Date/Time: Friday, January 27, 2017 17:51 - CONCLUSION: Evidence of small bowel obstruction with adhesed, distended small bowel loops in and around the large left lower quadrant peristomal hernia. Trey Wang MD Objective Remarks GENERAL: This is a well-nourished, well-developed patient, in no apparent distress. SKIN: No rashes, ecchymoses or lesions. Warm and dry. Surgical scar over the abdomen. HEAD: Atraumatic. Normocephalic. EYES: No scleral icterus. No injection or drainage. ENT: Dry mucous membranes. NECK: Trachea midline. CARDIOVASCULAR: Distant heart sounds. RESPIRATORY: Decreased Breath sounds equal bilaterally. No wheezes, rales, or rhonchi. GASTROINTESTINAL: Normal bowel sounds. Abdomen distended but soft. Mildly tender on the left in area of hernia. Colostomy bag on the left MUSCULOSKELETAL: No lower extremity edema bilaterally. NEUROLOGICAL: Awake and alert. Motor grossly within normal limits. Normal speech. Procedures none A/P Problem List: (1) Small bowel obstruction ICD Code: K56.69 Status: Acute (2) History of colostomy ICD Code: Z98.890 Status: Acute (3) JASMYN (acute kidney injury) ICD Code: N17.9 Status: Acute Assessment and Plan 71-year-old female presents with abdominal pain, nausea, and vomiting and found to have: Small bowel obstruction: Patient with current left-sided colostomy. Per patient she had a bowel obstruction one month ago in [place] and also had C. difficile at that time. CT imaging reveals small bowel obstruction and adhesions around the left-sided hernia, but patient appears stable. C. difficile testing is negative. Mild leukocytosis improved. Patient afebrile. -General surgery evaluated the patient. No surgical intervention indicated. Repeat KUB showed resolving SBO. Patient recommended to follow with her surgeon and consider surgical intervention -Because of recurrence of left lower quadrant pain, will switch back to clear liquid diet and monitor. Repeat KUB shows no obstruction -Continue Zofran prn nausea -Dilaudid prn pain -Continue Lactinex -Patient refuses Flagyl JASMYN: Creatinine 1.10, stable this morning. GFR 49. Could have chronic kidney disease, but no prior labs for comparison. -Status post IVF. -Monitor BMP. Hypoxia likely secondary to atelectasis history of COPD. Incentive spirometry increase activity. Nebs as needed. Passed walk test History of hypertension and hyperlipidemia. Stable continue outpatient medications as appropriate DVT prevention: SCDs. Subcutaneous heparin Discharge Planning Possible discharge later today if tolerating diet Grant Chilel MD Jan 30, 2017 11:32
--- NOTE | 2017-01-30 11:37 | HHI.DS ---
Discharge Summary Admission Date Jan 27, 2017 at 19:03 Discharge Date: Jan 30, 2017 Admitting Diagnosis small bowel obstruction (1) Small bowel obstruction ICD Code: K56.69 Diagnosis: Principal (2) History of colostomy ICD Code: Z98.890 Diagnosis: Principal (3) JASMYN (acute kidney injury) ICD Code: N17.9 Diagnosis: Principal Procedures none Brief History - From Admission 71-year-old female with history of small bowel obstruction and C. difficile one month ago with pre-existing left-sided colostomy s/p bowel perforation and fistula formation a few years ago presents with complaint of increased abdominal pain and nausea, and vomiting. Patient states she had abdominal pain which started on Friday night but she took Tylenol which relieved it. She states yesterday morning symptoms started again and she had some mild vomiting. She admits to feeling nauseous. Denies any further emesis. She denies any increased stool output into her colostomy bag but states it is green. Patient states she has increased gas into her colostomy bag. She denies any abdominal distention. She's admits to feeling hot but denies any chills. Patient states one month ago in [place] she was told she had a "small blockage" and was diagnosed with C. difficile and put on medication. Patient states she hadn't had any problems in 1.5 years until last month. Patient states she has been up and walking around. Patient does not wish to continue Flagyl. CBC/BMP: 01/28/17 0545 01/28/17 0545 Significant Findings Laboratory Tests Test 01/27/17 01/27/17 01/28/17 16:35 16:45 05:45 Urine Occult Blood TRACE (NEG) Urine Leukocyte Esterase SMALL (NEG) Urine WBC 6-8 /hpf (0-5) Urine Bacteria RARE /hpf (NONE) White Blood Count 11.3 TH/MM3 (4.0-11.0) Neutrophils (%) (Auto) 76.9 % 72.0 % (16.0-70.0) (16.0-70.0) Neutrophils # (Auto) 8.7 TH/MM3 (1.8-7.7) Creatinine 1.10 MG/DL 1.10 MG/DL (0.50-1.00) (0.50-1.00) Estimat Glomerular Filtration 49 ML/MIN (>89) 49 ML/MIN (>89) Rate Random Glucose 110 MG/DL 126 MG/DL (74-106) (74-106) Total Protein 8.5 GM/DL (6.4-8.2) Monocytes (%) (Auto) 11.6 % (0.0-8.0) Imaging Last Impressions Chest X-Ray 01/30/17 0000 Signed Impressions: Service Date/Time: January 09:46 - CONCLUSION: 1. Small left pleural effusion. 2. Bibasilar streakiness consistent with atelectasis and/or mild infiltrates. Clinical correlation is recommended. 3. Degenerative changes and scoliosis of the thoracic spine. Lamin Dunn MD Abdomen X-Ray 01/30/17 0000 Signed Impressions: Service Date/Time: January 09:52 - CONCLUSION: Nonspecific abdomen. K. Chay Carlton MD Abdomen/Pelvis CT 01/27/17 1704 Signed Impressions: Service Date/Time: Friday, January 27, 2017 17:51 - CONCLUSION: Evidence of small bowel obstruction with adhesed, distended small bowel loops in and around the large left lower quadrant peristomal hernia. Trey Wang MD PE at Discharge GENERAL: This is a well-nourished, well-developed patient, in no apparent distress. SKIN: No rashes, ecchymoses or lesions. Warm and dry. Surgical scar over the abdomen. HEAD: Atraumatic. Normocephalic. EYES: No scleral icterus. No injection or drainage. ENT: Dry mucous membranes. NECK: Trachea midline. CARDIOVASCULAR: Distant heart sounds. RESPIRATORY: Decreased Breath sounds equal bilaterally. No wheezes, rales, or rhonchi. GASTROINTESTINAL: Normal bowel sounds. Abdomen distended but soft. Mildly tender on the left in area of hernia. Colostomy bag on the left MUSCULOSKELETAL: No lower extremity edema bilaterally. NEUROLOGICAL: Awake and alert. Motor grossly within normal limits. Normal speech. Hospital Course 71-year-old female presents with abdominal pain, nausea, and vomiting and found to have: Small bowel obstruction: Patient with current left-sided colostomy. Per patient she had a bowel obstruction one month ago in [place] and also had C. difficile at that time. CT imaging reveals small bowel obstruction and adhesions around the left-sided hernia, but patient appears stable. C. difficile testing is negative. Mild leukocytosis improved. Patient afebrile. -General surgery evaluated the patient. No surgical intervention indicated. Repeat KUB showed resolving SBO. Patient recommended to follow with her surgeon and consider surgical intervention -Because of recurrence of left lower quadrant pain, will switch back to clear liquid diet and monitor. Repeat KUB shows no obstruction -Continue Zofran prn nausea -Dilaudid prn pain -Continue Lactinex -Patient refuses Flagyl JASMYN: Creatinine 1.10, stable this morning. GFR 49. Could have chronic kidney disease, but no prior labs for comparison. -Status post IVF. -Monitor BMP. Hypoxia likely secondary to atelectasis history of COPD. Incentive spirometry increase activity. Nebs as needed. Passed walk test History of hypertension and hyperlipidemia. Stable continue outpatient medications as appropriate DVT prevention: SCDs. Subcutaneous heparin Pt Condition on Discharge: Stable Discharge Disposition: Discharge Home Discharge Time: > 30 minutes Discharge Instructions DIET: Follow Instructions for: Soft Diet, Clear Liquid Diet Activities you can perform: Regular-No Restrictions Activities to Avoid: Driving Follow up Referrals: PCP Follow-up - 1 Week Continued Medications: Metoprolol Tartrate (Metoprolol Tartrate) 25 Mg Tab 25 MG PO BID Blood Pressure Management Ref 0 TAB Pantoprazole (Pantoprazole) 40 Mg Tab 40 MG PO DAILY Reflux #30 Ref 0 TAB Pravastatin (Pravastatin) 10 Mg Tab 40 MG PO HS Cholesterol Management #30 Ref 0 TAB Sertraline (Zoloft) 50 Mg Tab 50 MG PO DAILY Ref 0 TAB Zolpidem (Ambien) 5 Mg Tab 5 MG PO HS PRN INSOMNIA #30 Ref 0 TAB Grant Chilel MD Jan 30, 2017 11:37
[2017-01-30] MEDS ORDERED: RESP: ALBUTEROL 0.63 MG/3 ML NEB (PRN) NEB (11:45)
[2017-01-30] MEDS ORDERED: HEPARIN SODIUM - SQ 10,000 UNITS/ML VIAL SQ SCH (11:45)
[2017-01-30 12:00] VITALS: BP 115/71; PULSE 71; RESP 20; TEMP 97.6; O2SAT 95
[2017-01-30 16:00] VITALS: BP 146/79; PULSE 67; RESP 20; TEMP 96.1; O2SAT 97
[2017-01-30] MEDS ORDERED: RESP: ALBUTEROL 0.63 MG/3 ML NEB (SCH) NEB (16:00)
== END 2017-01-30 17:59 | disposition home or self-care (01) ==
LOC: PHED 16:05 → PHEDA 19:03 → PH3B 20:30
PROVIDERS: ADMIT Family Medicine; ATTEND Family Medicine
DX: K56.69 Other intestinal obstruction (principal); Z93.3 Colostomy status; N17.9 Acute kidney failure, unspecified; R10.32 Left lower quadrant pain; M54.9 Dorsalgia, unspecified; K92.1 Melena; Z86.19 Personal history of other infectious and parasitic diseases; I10 Essential (primary) hypertension; E78.00 Pure hypercholesterolemia, unspecified; K21.9 Gastro-esophageal reflux disease without esophagitis; J44.9 Chronic obstructive pulmonary disease, unspecified; Z79.899 Other long term (current) drug therapy; R11.0 Nausea; E78.5 Hyperlipidemia, unspecified; Z87.891 Personal history of nicotine dependence; D72.829 Elevated white blood cell count, unspecified; J98.11 Atelectasis; J90 Pleural effusion, not elsewhere classified; R09.02 Hypoxemia
CPT/HCPCS: 71020; 74000; 74177; 80048; 80053; 81001; 83690; 85025; 87493; 94150; 94620; 94640; 96374; 96375; 97110; 97116; 97162; 99285; C9113; G0378; G8987; G8988; J1170; J2270; J2405; J7030; J7613; Q9967